=== PATIENT | male | born 1965 ===

== ENCOUNTER 2021-04-25 03:09 | Emergency (ER) | payer SELFPAY ==
[2021-04-25 03:17] VITALS: BP 151/87; PULSE 71; RESP 20; TEMP 98.2
--- NOTE | 2021-04-25 03:44 | ED ---
Recheck HPI - General Chief Complaint: Recheck/Abnormal Lab/Rx Stated Complaint: covid swab Time Seen by Provider: 04/25/21 03:14 Source: patient, RN notes reviewed, old records reviewed Mode of arrival: wheelchair Limitations: physical limitation - History of Present Illness Initial Comments: This is a 55-year-old male to the emergency department for evaluation patient presents today for evaluation regards to needing coronavirus test. Patient has no symptoms has no other complaints no travel history or sick contacts. MD Complaint: medication refill request -: unknown Returns Today for: request for prescription (Requesting coronavirus), other Symptoms Since Prior Visit: no new symptoms Context: planned re-check Associated Symptoms: none Treatments Prior to Arrival: other (none) - Related Data Allergies Allergy/AdvReac Type Severity Reaction Status Date / Time No Known Allergies Allergy Verified 04/25/21 03:15 Review of Systems ROS Statement: Those systems with pertinent positive or pertinent negative responses have been documented in the HPI. ROS Other: All systems not noted in ROS Statement are negative. Past Medical History Additional Past Medical History / Comment(s): back injury History of Any Multi-Drug Resistant Organisms: None Reported Past Surgical History: Back Surgery Past Psychological History: No Psychological Hx Reported Smoking Status: Never smoker Past Alcohol Use History: None Reported Past Drug Use History: None Reported General Exam Limitations: physical limitation General appearance: alert, in no apparent distress Head exam: Present: atraumatic, normocephalic, normal inspection Eye exam: Present: normal appearance, PERRL, EOMI. Absent: scleral icterus, conjunctival injection, periorbital swelling ENT exam: Present: normal exam, mucous membranes moist Neck exam: Present: normal inspection. Absent: tenderness, meningismus, lymphadenopathy Respiratory exam: Present: normal lung sounds bilaterally. Absent: respiratory distress, wheezes, rales, rhonchi, stridor Cardiovascular Exam: Present: regular rate, normal rhythm, normal heart sounds. Absent: systolic murmur, diastolic murmur, rubs, gallop, clicks GI/Abdominal exam: Present: soft, normal bowel sounds. Absent: distended, tenderness, guarding, rebound, rigid Extremities exam: Present: normal inspection, full ROM, normal capillary refill. Absent: tenderness, pedal edema, joint swelling, calf tenderness Back exam: Present: normal inspection Neurological exam: Present: alert, oriented X3, CN II-XII intact Psychiatric exam: Present: normal affect, normal mood Skin exam: Present: warm, dry, intact, normal color. Absent: rash Course Vital Signs 04/25/21 03:12 Temperature 98.2 F Pulse Rate 71 Respiratory 20 Rate Blood Pressure 151/87 O2 Sat by Pulse 99 Oximetry - Reevaluation(s) Reevaluation #1: 04/25/21 03:43 Records reviewed Reevaluation #2: 04/25/21 03:43 She is informed of results and questions have been answered Medical Decision Making - Medical Decision Making 55 male for coronavirus testing. Patient is informed of coronavirus test results Disposition Clinical Impression: Normal exam Disposition: HOME SELF-CARE Condition: Good Instructions (If sedation given, give patient instructions): Normal Exam (ED) Is patient prescribed a controlled substance at d/c from ED?: No Referrals: None,Stated [Primary Care Provider] - 1-2 days
== END 2021-04-25 04:37 | disposition home or self-care (01) ==
LOC: EC 03:09
DX: Z00.00 Encounter for general adult medical examination without abnormal findings (principal); Z11.52 Encounter for screening for COVID-19; Z20.822 Contact with and (suspected) exposure to COVID-19
CPT/HCPCS: 87635; 99282